=== PATIENT | male | born 1940 | race Caucasian/White ===

== ENCOUNTER → 2016-12-08 | Outpatient (CLI) | payer MEDICARE, OTHER | LOC: LAB 08:27 | DX: Z51.81 Encounter for therapeutic drug level monitoring (principal); Z79.01 Long term (current) use of anticoagulants; Z86.718 Personal history of other venous thrombosis and embolism ==

== ENCOUNTER → 2016-12-23 | Day surgery (SDC) | payer MEDICARE, OTHER | LOC: MSO 07:01 | DX: Z86.010 Personal history of colon polyps (principal); Z12.11 Encounter for screening for malignant neoplasm of colon; K57.30 Diverticulosis of large intestine without perforation or abscess without bleeding; I10 Essential (primary) hypertension; Z87.891 Personal history of nicotine dependence; G47.33 Obstructive sleep apnea (adult) (pediatric); J44.9 Chronic obstructive pulmonary disease, unspecified; J45.909 Unspecified asthma, uncomplicated; K21.9 Gastro-esophageal reflux disease without esophagitis | CPT/HCPCS: 00810; J7120 ==

== ENCOUNTER → 2017-01-06 | Outpatient (CLI) | payer MEDICARE, OTHER | LOC: LAB 13:03 | DX: I26.99 Other pulmonary embolism without acute cor pulmonale (principal); Z86.718 Personal history of other venous thrombosis and embolism ==

== ENCOUNTER → 2017-02-03 | Outpatient (CLI) | payer MEDICARE, OTHER | LOC: LAB 07:26 | DX: Z51.81 Encounter for therapeutic drug level monitoring (principal); Z79.01 Long term (current) use of anticoagulants; I26.99 Other pulmonary embolism without acute cor pulmonale ==

== ENCOUNTER → 2017-02-17 | Outpatient (CLI) | payer MEDICARE, OTHER | LOC: LAB 07:20 | DX: Z51.81 Encounter for therapeutic drug level monitoring (principal); Z79.01 Long term (current) use of anticoagulants; I26.99 Other pulmonary embolism without acute cor pulmonale; Z86.718 Personal history of other venous thrombosis and embolism ==

== ENCOUNTER → 2017-02-27 | Outpatient (CLI) | payer MEDICARE, OTHER | LOC: LAB 08:15 | DX: I26.99 Other pulmonary embolism without acute cor pulmonale (principal); Z86.718 Personal history of other venous thrombosis and embolism ==

== ENCOUNTER → 2017-03-04 | Outpatient (CLI) | payer MEDICARE, OTHER | LOC: LAB 12:41 | DX: Z51.81 Encounter for therapeutic drug level monitoring (principal); Z79.01 Long term (current) use of anticoagulants; I26.99 Other pulmonary embolism without acute cor pulmonale; Z86.718 Personal history of other venous thrombosis and embolism ==

== ENCOUNTER → 2017-03-12 | Outpatient (CLI) | payer MEDICARE, OTHER | LOC: LAB 12:54 | DX: Z51.81 Encounter for therapeutic drug level monitoring (principal); Z79.01 Long term (current) use of anticoagulants; I26.99 Other pulmonary embolism without acute cor pulmonale ==

== ENCOUNTER → 2017-03-26 | Outpatient (CLI) | payer MEDICARE, OTHER | LOC: LAB 11:16 | DX: I26.99 Other pulmonary embolism without acute cor pulmonale (principal); R97.20 Elevated prostate specific antigen [PSA]; Z86.718 Personal history of other venous thrombosis and embolism; Z51.81 Encounter for therapeutic drug level monitoring; Z79.01 Long term (current) use of anticoagulants ==

== ENCOUNTER → 2017-04-24 | Outpatient (CLI) | payer MEDICARE, OTHER | LOC: LAB 10:38 | DX: Z51.81 Encounter for therapeutic drug level monitoring (principal); Z79.01 Long term (current) use of anticoagulants; I26.99 Other pulmonary embolism without acute cor pulmonale; Z86.718 Personal history of other venous thrombosis and embolism ==

== ENCOUNTER → 2017-05-25 | Outpatient (CLI) | payer MEDICARE, OTHER | LOC: LAB 08:16 | DX: Z51.81 Encounter for therapeutic drug level monitoring (principal); Z79.01 Long term (current) use of anticoagulants; I26.99 Other pulmonary embolism without acute cor pulmonale; Z86.718 Personal history of other venous thrombosis and embolism ==

== ENCOUNTER → 2017-06-09 | Outpatient (CLI) | payer MEDICARE, OTHER | LOC: LAB 07:23 | DX: I26.99 Other pulmonary embolism without acute cor pulmonale (principal); Z86.718 Personal history of other venous thrombosis and embolism ==

== ENCOUNTER → 2017-07-09 | Outpatient (CLI) | payer MEDICARE, OTHER | LOC: LAB 13:35 | DX: I26.99 Other pulmonary embolism without acute cor pulmonale (principal); Z86.718 Personal history of other venous thrombosis and embolism ==

== ENCOUNTER → 2017-08-07 | Outpatient (CLI) | payer MEDICARE, OTHER | LOC: LAB 10:34 | DX: I26.99 Other pulmonary embolism without acute cor pulmonale (principal); Z86.718 Personal history of other venous thrombosis and embolism ==

== ENCOUNTER → 2017-09-02 | Outpatient (CLI) | payer MEDICARE, OTHER ==
[2017-09-02 13:05] LABS: PROTHROMBIN TIME 23.8 SECONDS (9.0-12.0)
== END ==
LOC: LAB 12:37
PROVIDERS: Nurse Practitioner Family
DX: I26.99 Other pulmonary embolism without acute cor pulmonale (principal); Z86.718 Personal history of other venous thrombosis and embolism

== ENCOUNTER → 2017-11-02 | Outpatient (CLI) | payer MEDICARE, OTHER ==
[2017-11-02 08:51] LABS: PROTHROMBIN TIME 29.5 SECONDS (9.0-12.0)
== END ==
LOC: LAB 08:23
PROVIDERS: Nurse Practitioner Family
DX: I26.99 Other pulmonary embolism without acute cor pulmonale (principal); Z86.718 Personal history of other venous thrombosis and embolism

== ENCOUNTER → 2017-12-02 | Outpatient (CLI) | payer MEDICARE, OTHER ==
[2017-12-02 13:43] LABS: PROTHROMBIN TIME 35.4 SECONDS (9.0-12.0)
== END ==
LOC: LAB 13:23
PROVIDERS: Nurse Practitioner Family
DX: I26.99 Other pulmonary embolism without acute cor pulmonale (principal); Z86.718 Personal history of other venous thrombosis and embolism; Z88.1 Allergy status to other antibiotic agents

== ENCOUNTER → 2017-12-09 | Outpatient (CLI) | payer MEDICARE, OTHER ==
[2017-12-09 15:26] LABS: CALCIUM 8.3 mg/dL (8.4-10.2); POTASSIUM 4.1 mmol/L (3.6-5.0)
== END ==
LOC: LAB 14:49
PROVIDERS: Nurse Practitioner Family
DX: E87.1 Hypo-osmolality and hyponatremia (principal); I10 Essential (primary) hypertension; Z88.1 Allergy status to other antibiotic agents

== ENCOUNTER → 2017-12-16 | Outpatient (CLI) | payer MEDICARE, OTHER ==
[2017-12-16 10:21] LABS: CALCIUM 8.4 mg/dL (8.4-10.2); POTASSIUM 4.3 mmol/L (3.6-5.0)
[2017-12-16 10:23] LABS: PROTHROMBIN TIME 37.6 SECONDS (9.0-12.0)
== END ==
LOC: LAB 09:45
PROVIDERS: Nurse Practitioner Family
DX: I26.99 Other pulmonary embolism without acute cor pulmonale (principal); E87.1 Hypo-osmolality and hyponatremia; Z86.718 Personal history of other venous thrombosis and embolism

== ENCOUNTER → 2018-01-06 | Outpatient (CLI) | payer MEDICARE, OTHER ==
[2018-01-06 13:11] LABS: PROTHROMBIN TIME 27.7 SECONDS (9.0-12.0)
== END ==
LOC: LAB 12:44
PROVIDERS: Nurse Practitioner Family
DX: I26.99 Other pulmonary embolism without acute cor pulmonale (principal); Z86.718 Personal history of other venous thrombosis and embolism

== ENCOUNTER → 2018-02-02 | Outpatient (CLI) | payer MEDICARE, OTHER ==
[2018-02-02 07:50] LABS: PROTHROMBIN TIME 23.4 SECONDS (9.0-12.0)
== END ==
LOC: LAB 07:27
PROVIDERS: Nurse Practitioner Family
DX: I26.99 Other pulmonary embolism without acute cor pulmonale (principal); Z86.718 Personal history of other venous thrombosis and embolism

== ENCOUNTER → 2018-03-04 | Outpatient (CLI) | payer MEDICARE, OTHER ==
[2018-03-04 13:11] LABS: PROTHROMBIN TIME 24.4 SECONDS (9.0-12.0)
== END ==
LOC: LAB 12:22
PROVIDERS: Nurse Practitioner Family
DX: I26.99 Other pulmonary embolism without acute cor pulmonale (principal); Z86.718 Personal history of other venous thrombosis and embolism; Z88.1 Allergy status to other antibiotic agents

== ENCOUNTER → 2018-04-05 | Outpatient (CLI) | payer MEDICARE, OTHER ==
[2018-04-05 10:19] LABS: PROTHROMBIN TIME 24.3 SECONDS (9.0-12.0)
== END ==
LOC: LAB 09:55
PROVIDERS: Nurse Practitioner Family
DX: I26.99 Other pulmonary embolism without acute cor pulmonale (principal); Z86.718 Personal history of other venous thrombosis and embolism

== ENCOUNTER → 2018-05-03 | Outpatient (CLI) | payer MEDICARE, OTHER ==
[2018-05-03 12:55] LABS: PROTHROMBIN TIME 27.4 SECONDS (9.0-12.0)
== END ==
LOC: LAB 12:24
PROVIDERS: Nurse Practitioner Family
DX: I26.99 Other pulmonary embolism without acute cor pulmonale (principal); Z86.718 Personal history of other venous thrombosis and embolism

== ENCOUNTER → 2018-05-26 | Outpatient (CLI) | payer MEDICARE, OTHER ==
[2018-05-26 07:59] LABS: PROTHROMBIN TIME 22.1 SECONDS (9.0-12.0)
== END ==
LOC: LAB 06:56
PROVIDERS: Nurse Practitioner Family
DX: I26.99 Other pulmonary embolism without acute cor pulmonale (principal); Z86.718 Personal history of other venous thrombosis and embolism

== ENCOUNTER → 2018-06-23 | Outpatient (CLI) | payer MEDICARE, OTHER ==
[2018-06-23 13:17] LABS: PROTHROMBIN TIME 26.4 SECONDS (9.0-12.0)
== END ==
LOC: LAB 12:31
PROVIDERS: Nurse Practitioner Family
DX: I26.99 Other pulmonary embolism without acute cor pulmonale (principal); Z86.718 Personal history of other venous thrombosis and embolism

== ENCOUNTER → 2018-07-22 | Outpatient (CLI) | payer MEDICARE, OTHER | LOC: LAB 09:44 | PROVIDERS: Physician Assistant | DX: I26.99 Other pulmonary embolism without acute cor pulmonale (principal); Z86.718 Personal history of other venous thrombosis and embolism ==

== ENCOUNTER → 2018-08-24 | Outpatient (CLI) | payer MEDICARE, OTHER ==
[2018-08-24 10:05] LABS: PROTHROMBIN TIME 21.3 SECONDS (9.0-12.0)
== END ==
LOC: LAB 08:55
PROVIDERS: Physician Assistant
DX: I26.99 Other pulmonary embolism without acute cor pulmonale (principal); Z86.718 Personal history of other venous thrombosis and embolism

== ENCOUNTER → 2018-09-20 | Outpatient (CLI) | payer MEDICARE, OTHER ==
[2018-09-20 11:01] LABS: PROTHROMBIN TIME 25.9 SECONDS (9.0-12.0)
== END ==
LOC: LAB 10:11
PROVIDERS: Physician Assistant
DX: Z86.718 Personal history of other venous thrombosis and embolism (principal)

== ENCOUNTER → 2018-10-19 | Outpatient (CLI) | payer MEDICARE, OTHER ==
[2018-10-19 10:45] LABS: PROTHROMBIN TIME 28.9 SECONDS (9.0-12.0)
== END ==
LOC: LAB 10:01
PROVIDERS: Physician Assistant
DX: Z86.718 Personal history of other venous thrombosis and embolism (principal)

== ENCOUNTER → 2018-12-21 | Outpatient (CLI) | payer MEDICARE, OTHER | LOC: LAB 09:20 | PROVIDERS: Physician Assistant | DX: Z86.718 Personal history of other venous thrombosis and embolism (principal) ==

== ENCOUNTER → 2019-01-03 | Outpatient (CLI) | payer MEDICARE, OTHER ==
[2019-01-03 08:08] LABS: PROTHROMBIN TIME 30.7 SECONDS (9.0-12.0)
== END ==
LOC: LAB 07:24
PROVIDERS: Physician Assistant
DX: Z86.718 Personal history of other venous thrombosis and embolism (principal)

== ENCOUNTER → 2019-01-28 | Outpatient (CLI) | payer MEDICARE, OTHER ==
[2019-01-28 10:21] LABS: PROTHROMBIN TIME 22.1 SECONDS (9.0-12.0)
== END ==
LOC: LAB 09:46
PROVIDERS: Physician Assistant
DX: Z86.718 Personal history of other venous thrombosis and embolism (principal)

== ENCOUNTER → 2019-02-08 | Outpatient (CLI) | payer MEDICARE, OTHER ==
[2019-02-08 11:08] LABS: PROTHROMBIN TIME 22.4 SECONDS (9.0-12.0)
== END ==
LOC: LAB 10:33
PROVIDERS: Physician Assistant
DX: Z86.718 Personal history of other venous thrombosis and embolism (principal)

== ENCOUNTER → 2019-03-11 | Outpatient (CLI) | payer MEDICARE, OTHER ==
[2019-03-11 10:08] LABS: PROTHROMBIN TIME 18.6 SECONDS (9.0-12.0)
== END ==
LOC: LAB 09:08
PROVIDERS: Physician Assistant
DX: Z86.718 Personal history of other venous thrombosis and embolism (principal)

== ENCOUNTER → 2019-03-24 | Outpatient (CLI) | payer MEDICARE, OTHER ==
[2019-03-24 09:02] LABS: PROTHROMBIN TIME 20.2 SECONDS (9.0-12.0)
== END ==
LOC: LAB 08:29
PROVIDERS: Physician Assistant
DX: Z86.718 Personal history of other venous thrombosis and embolism (principal)

== ENCOUNTER → 2019-04-22 | Outpatient (CLI) | payer MEDICARE, OTHER ==
[2019-04-22 09:25] LABS: PROTHROMBIN TIME 26.1 SECONDS (9.0-12.0)
== END ==
LOC: LAB 08:37
PROVIDERS: Physician Assistant
DX: Z86.718 Personal history of other venous thrombosis and embolism (principal)

== ENCOUNTER → 2019-05-16 | Outpatient (CLI) | payer MEDICARE, OTHER ==
[2019-05-16 10:32] LABS: PROTHROMBIN TIME 25.8 SECONDS (9.0-12.0)
== END ==
LOC: LAB 10:10
PROVIDERS: Physician Assistant
DX: Z86.718 Personal history of other venous thrombosis and embolism (principal)

== ENCOUNTER → 2019-06-21 | Outpatient (CLI) | payer MEDICARE, OTHER ==
[2019-06-21 09:05] LABS: PROTHROMBIN TIME 27.7 SECONDS (9.0-12.0)
== END ==
LOC: LAB 08:43
PROVIDERS: Physician Assistant
DX: Z86.718 Personal history of other venous thrombosis and embolism (principal)

== ENCOUNTER → 2019-07-19 | Outpatient (CLI) | payer MEDICARE, OTHER ==
[2019-07-19 10:28] LABS: PROTHROMBIN TIME 23.9 SECONDS (9.0-12.0)
== END ==
LOC: LAB 09:20
PROVIDERS: Physician Assistant
DX: I26.99 Other pulmonary embolism without acute cor pulmonale (principal); Z86.718 Personal history of other venous thrombosis and embolism

== ENCOUNTER → 2019-08-17 | Outpatient (CLI) | payer MEDICARE, OTHER ==
[2019-08-17 13:07] LABS: PROTHROMBIN TIME 21.9 SECONDS (9.0-12.0)
[2019-08-17 14:01] LABS: EOS # 0.2 (0.04-0.40); EOS % 1.5 % (0.0-4.0); HEMATOCRIT 45.1 % (42.0-52.0); HEMOGLOBIN 14.9 g/dL (13.5-18.0); LYMPH# 2.3 (1.50-4.00); MEAN CELL VOLUME 85 fl (78-100); MEAN CORPUSCULAR HEMOGLOBIN 28 pg (27-31); MEAN CORPUSCULAR HGB CONC 33 g/dL (33-37); MEAN PLATELET VOLUME 9.6 fl (7.4-10.4); NEU # 6.7 (1.40-6.50); PLATELET COUNT 292 K/mm3 (130-400); RED BLOOD COUNT 5.32 M/mm3 (4.20-5.60); RED CELL DISTRIBUTION WIDTH 14.9 % (11.5-14.5); WHITE BLOOD COUNT 10.2 K/mm3 (4.8-10.8)
[2019-08-17 14:04] LABS: ALBUMIN 3.7 g/dL (3.4-4.8)
[2019-08-17 14:05] LABS: POTASSIUM 4.3 mmol/L (3.5-5.1)
[2019-08-17 14:06] LABS: CALCIUM 8.8 mg/dL (8.3-10.5)
[2019-08-17 14:07] LABS: TOTAL PROTEIN 6.8 g/dL (6.2-8.1)
[2019-08-17 14:09] LABS: TOTAL BILIRUBIN 1.1 mg/dL (0.2-1.2)
== END ==
LOC: LAB 12:46
PROVIDERS: Physician Assistant
DX: I26.99 Other pulmonary embolism without acute cor pulmonale (principal); Z86.718 Personal history of other venous thrombosis and embolism

== ENCOUNTER → 2019-09-15 | Outpatient (CLI) | payer MEDICARE, OTHER ==
[2019-09-15 09:49] LABS: PROTHROMBIN TIME 23.1 SECONDS (9.0-12.0)
== END ==
LOC: LAB 09:11
PROVIDERS: Physician Assistant
DX: I26.99 Other pulmonary embolism without acute cor pulmonale (principal); Z86.718 Personal history of other venous thrombosis and embolism

== ENCOUNTER → 2019-10-19 | Outpatient (CLI) | payer MEDICARE, OTHER ==
[2019-10-19 09:09] LABS: PROTHROMBIN TIME 25.8 SECONDS (9.0-12.0)
== END ==
LOC: LAB 08:28
PROVIDERS: Physician Assistant
DX: I26.99 Other pulmonary embolism without acute cor pulmonale (principal); Z86.718 Personal history of other venous thrombosis and embolism

== ENCOUNTER → 2019-11-22 | Outpatient (CLI) | payer MEDICARE, OTHER ==
[2019-11-22 08:23] LABS: PROTHROMBIN TIME 30.1 SECONDS (9.0-12.0)
== END ==
LOC: LAB 07:55
PROVIDERS: Physician Assistant
DX: I26.99 Other pulmonary embolism without acute cor pulmonale (principal); Z86.718 Personal history of other venous thrombosis and embolism

== ENCOUNTER → 2019-12-27 | Outpatient (CLI) | payer MEDICARE, OTHER ==
[2019-12-27 09:29] LABS: PROTHROMBIN TIME 31.5 SECONDS (9.0-12.0)
== END ==
LOC: LAB 09:02
PROVIDERS: Physician Assistant
DX: I26.99 Other pulmonary embolism without acute cor pulmonale (principal); Z86.718 Personal history of other venous thrombosis and embolism

== ENCOUNTER → 2020-01-30 | Outpatient (CLI) | payer MEDICARE, OTHER ==
[2020-01-30 11:31] LABS: PROTHROMBIN TIME 28.3 SECONDS (9.0-12.0)
== END ==
LOC: LAB 11:03
PROVIDERS: Physician Assistant
DX: I26.99 Other pulmonary embolism without acute cor pulmonale (principal); Z86.718 Personal history of other venous thrombosis and embolism

== ENCOUNTER → 2020-03-08 | Outpatient (CLI) | payer MEDICARE, OTHER ==
[2020-03-08 08:23] LABS: PROTHROMBIN TIME 27.2 SECONDS (9.0-12.0)
== END ==
LOC: LAB 07:40
PROVIDERS: Physician Assistant
DX: I26.99 Other pulmonary embolism without acute cor pulmonale (principal); Z86.718 Personal history of other venous thrombosis and embolism

== ENCOUNTER → 2020-04-10 | Outpatient (CLI) | payer MEDICARE, OTHER ==
[2020-04-10 09:15] LABS: PROTHROMBIN TIME 19.7 SECONDS (9.0-12.0)
== END ==
LOC: LAB 08:33
PROVIDERS: Physician Assistant
DX: I26.99 Other pulmonary embolism without acute cor pulmonale (principal); Z86.718 Personal history of other venous thrombosis and embolism

== ENCOUNTER 2021-05-29 04:32 | Observation (INO) | payer MEDICARE, OTHER ==
[2021-05-29 04:16] VITALS: BP 158/71
[2021-05-29] MEDS ORDERED: DICLOFENAC SOD100 GM TP (04:45)
[2021-05-29] MEDS ORDERED: ELIQUIS5 MG PO (04:46)
[2021-05-29] MEDS ORDERED: REFRESH PLUS 00.4 M1 OP (04:46)
[2021-05-29] MEDS ORDERED: SYSTANE NIGHTT3.5 GM OP (04:46)
[2021-05-29] MEDS ORDERED: PEG335017 GM/Dose PO (04:46)
[2021-05-29] MEDS ORDERED: VITAMIN C500 MG (04:47)
[2021-05-29] MEDS ORDERED: LISINOPRIL40 MG PO (04:47)
[2021-05-29] MEDS ORDERED: CETIRIZINE HCL10 MG PO (04:47)
[2021-05-29] MEDS ORDERED: PROAIR HFA0.09 MG/AC IH (04:48)
[2021-05-29] MEDS ORDERED: ATORVASTATIN CA40 MG PO (04:48)
[2021-05-29] MEDS ORDERED: FLUTICASON0.05 MG/AC NS (04:48)
[2021-05-29] MEDS ORDERED: FINASTERIDE5 M1 PO (04:49)
[2021-05-29] MEDS ORDERED: PANTOPRAZOLE SO20 M1 PO (04:49)
[2021-05-29] MEDS ORDERED: KLONOPIN 0.5MG0.5 MG PO (04:50)
[2021-05-29] MEDS ORDERED: CELEXA 20MG20 MG/TA1 PO (04:50)
[2021-05-29] MEDS ORDERED: SENEXON-S 50-81 EACH PO (04:57)
[2021-05-29] MEDS ORDERED: STRIVERDI2.5 MCG/Ac IH (05:03)
[2021-05-29] MEDS ORDERED: INCRUSE EL62.5 MCG/A IH (05:04)
[2021-05-29 05:29] VITALS: BP 158/71
[2021-05-29 07:37] LABS: BASO # 0.02 (0.02-0.10); HEMATOCRIT 34.4 % (42.0-52.0); HEMOGLOBIN 11.1 g/dL (13.5-18.0); LYMPH# 0.87 (1.50-4.00); MEAN CELL VOLUME 76 fl (78-100); MEAN CORPUSCULAR HEMOGLOBIN 25 pg (27-31); MEAN CORPUSCULAR HGB CONC 32 g/dL (33-37); MEAN PLATELET VOLUME 9.2 fl (7.4-10.4); MONO # 1.01 (0.20-0.80); NEU # 7.52 (1.40-6.50); PLATELET COUNT 195 K/mm3 (130-400); RED BLOOD COUNT 4.53 M/mm3 (4.20-5.60); RED CELL DISTRIBUTION WIDTH 15.6 % (11.5-14.5); WHITE BLOOD COUNT 9.5 K/mm3 (4.8-10.8)
[2021-05-29 07:46] LABS: POTASSIUM 3.6 mmol/L (3.5-5.1)
[2021-05-29 07:47] LABS: CALCIUM 7.6 mg/dL (8.3-10.5)
[2021-05-29 07:48] LABS: TOTAL PROTEIN 5.9 g/dL (6.2-8.1)
[2021-05-29 07:50] LABS: TOTAL BILIRUBIN 0.5 mg/dL (0.2-1.2)
[2021-05-29 09:59] VITALS: BP 146/80
[2021-05-29 14:32] VITALS: BP 135/83
== END 2021-05-29 15:47 | disposition home or self-care (01) ==
LOC: MED/SURG 04:32
PROVIDERS: ADMIT Nurse Practitioner
DX: R50.9 Fever, unspecified (principal); R53.1 Weakness; E87.1 Hypo-osmolality and hyponatremia; Z86.16 Personal history of COVID-19; E78.5 Hyperlipidemia, unspecified; I48.91 Unspecified atrial fibrillation; Z20.822 Contact with and (suspected) exposure to COVID-19; Z79.01 Long term (current) use of anticoagulants; Z86.718 Personal history of other venous thrombosis and embolism; Z86.711 Personal history of pulmonary embolism; Z79.899 Other long term (current) drug therapy; F41.9 Anxiety disorder, unspecified
CPT/HCPCS: J7030

== ENCOUNTER 2021-06-01 15:28 | Emergency (ER) | payer MEDICARE, OTHER ==
[~2021-06-01 15:28] MED LIST: ATORVASTATIN CA40 MG PO; CELEXA 20MG20 MG/TA1 PO; CETIRIZINE HCL10 MG PO; DICLOFENAC SOD100 GM TP; ELIQUIS5 MG PO; FINASTERIDE5 M1 PO; FLUTICASON0.05 MG/AC NS; INCRUSE EL62.5 MCG/A IH; KLONOPIN 0.5MG0.5 MG PO; LISINOPRIL40 MG PO; PANTOPRAZOLE SO20 M1 PO; PEG335017 GM/Dose PO; PROAIR HFA0.09 MG/AC IH; REFRESH PLUS 00.4 M1 OP; SENEXON-S 50-81 EACH PO; STRIVERDI2.5 MCG/Ac IH; SYSTANE NIGHTT3.5 GM OP; VITAMIN C500 MG
[2021-06-01 15:58] VITALS: BP 169/97
[2021-06-01 16:43] LABS: HEMATOCRIT 33.9 % (42.0-52.0); HEMOGLOBIN 11.2 g/dL (13.5-18.0); MEAN CELL VOLUME 74 fl (78-100); MEAN CORPUSCULAR HEMOGLOBIN 24 pg (27-31); MEAN CORPUSCULAR HGB CONC 33 g/dL (33-37); MEAN PLATELET VOLUME 9.5 fl (7.4-10.4); PLATELET COUNT 176 K/mm3 (130-400); RED BLOOD COUNT 4.59 M/mm3 (4.20-5.60); RED CELL DISTRIBUTION WIDTH 15.7 % (11.5-14.5); WHITE BLOOD COUNT 13.4 K/mm3 (4.8-10.8)
[2021-06-01 16:58] LABS: ALBUMIN 2.9 g/dL (3.4-4.8); POTASSIUM 4.4 mmol/L (3.5-5.1); SODIUM 123 mmol/L (136-145)
[2021-06-01 16:59] LABS: CALCIUM 8.3 mg/dL (8.3-10.5)
[2021-06-01 17:00] LABS: GLUCOSE 126 mg/dL (75-110)
[2021-06-01 17:01] LABS: TOTAL PROTEIN 6.1 g/dL (6.2-8.1)
[2021-06-01 17:02] LABS: CARBON DIOXIDE 19 mmol/L (23-31); TOTAL BILIRUBIN 0.9 mg/dL (0.2-1.2)
[2021-06-01 17:06] LABS: AST-SGOT 59 U/L (5-34)
[2021-06-01 17:07] LABS: ALT/SGPT 34 U/L (0-55)
[2021-06-01 17:12] LABS: BAND 15 % (0-10); HYPOCHROMIA 1+; LYMPHOCYTE 3 % (20-51); MICROCYTOSIS 2+; MONOCYTE 3 % (3-10); NEUTROPHILS 79 % (42-75)
[2021-06-01 17:13] LABS: OVALOCYTES 1+
[2021-06-01 17:14] LABS: TROPONIN-I < 0.03 ng/mL (<0.030)
[2021-06-01 17:42] LABS: URINE APPEARANCE CLOUDY; URINE BILIRUBIN NEGATIVE (NEGATIVE); URINE BLOOD 250 ery/uL (NEGATIVE); URINE COLOR YELLOW; URINE GLUCOSE NEGATIVE (NEGATIVE); URINE KETONE NEGATIVE (NEGATIVE); URINE LEUKOCYTE ESTERASE NEGATIVE (NEGATIVE); URINE NITRATE NEGATIVE (NEGATIVE); URINE PROTEIN(semi-quant) 2+ mg/dL (NEGATIVE); URINE UROBILINOGEN NORMAL (NORMAL)
== END 2021-06-01 19:00 | disposition other institution (70) ==
LOC: ED 15:28
PROVIDERS: Family Medicine
DX: J18.9 Pneumonia, unspecified organism (principal); E87.1 Hypo-osmolality and hyponatremia; I48.91 Unspecified atrial fibrillation; F41.9 Anxiety disorder, unspecified; E78.5 Hyperlipidemia, unspecified; Z86.711 Personal history of pulmonary embolism; Z86.718 Personal history of other venous thrombosis and embolism; Z20.822 Contact with and (suspected) exposure to COVID-19

== ENCOUNTER 2021-06-01 18:08 | Inpatient (IN) | payer MEDICARE, OTHER ==
[2021-06-01 19:15] VITALS: BP 142/78
[2021-06-01 21:57] VITALS: BP 114/65
[2021-06-02 00:38] VITALS: BP 155/77
[2021-06-02 05:54] VITALS: BP 129/74
[2021-06-02 10:46] VITALS: BP 116/69
[2021-06-02 14:30] VITALS: BP 109/65
[2021-06-02 18:00] VITALS: BP 134/84
[2021-06-02 21:23] VITALS: BP 115/66
[2021-06-03 02:00] VITALS: BP 115/70
[2021-06-03 06:17] VITALS: BP 111/60
[2021-06-03 06:55] LABS: HEMATOCRIT 32.6 % (42.0-52.0); HEMOGLOBIN 10.6 g/dL (13.5-18.0); MEAN CELL VOLUME 76 fl (78-100); MEAN CORPUSCULAR HEMOGLOBIN 25 pg (27-31); MEAN CORPUSCULAR HGB CONC 33 g/dL (33-37); MEAN PLATELET VOLUME 9.8 fl (7.4-10.4); PLATELET COUNT 176 K/mm3 (130-400); RED CELL DISTRIBUTION WIDTH 16.1 % (11.5-14.5)
[2021-06-03 07:07] LABS: POTASSIUM 4.4 mmol/L (3.5-5.1)
[2021-06-03 07:08] LABS: CALCIUM 8.3 mg/dL (8.3-10.5)
[2021-06-03 07:39] LABS: BAND 11 % (0-10); LYMPHOCYTE 5 % (20-51); MICROCYTOSIS 2+; MONOCYTE 3 % (3-10); NEUTROPHILS 81 % (42-75); POLYCHROMASIA 1+
[2021-06-03 07:40] LABS: OVALOCYTES 1+
[2021-06-03 09:45] VITALS: BP 119/72
[2021-06-03 13:23] VITALS: BP 117/89
== END 2021-06-03 13:49 | disposition short-term general hospital (02) | DRG 194 ==
LOC: MED/SURG 18:08
PROVIDERS: ADMIT Family Medicine
DX: J18.9 Pneumonia, unspecified organism (principal); E87.1 Hypo-osmolality and hyponatremia; J44.0 Chronic obstructive pulmonary disease with (acute) lower respiratory infection; I48.91 Unspecified atrial fibrillation; K21.9 Gastro-esophageal reflux disease without esophagitis; F41.9 Anxiety disorder, unspecified; E78.5 Hyperlipidemia, unspecified; R06.6 Hiccough; R53.1 Weakness; Z20.822 Contact with and (suspected) exposure to COVID-19; Z79.01 Long term (current) use of anticoagulants; Z86.16 Personal history of COVID-19; Z86.711 Personal history of pulmonary embolism; Z86.718 Personal history of other venous thrombosis and embolism; Z88.0 Allergy status to penicillin; Z88.8 Allergy status to other drugs, medicaments and biological substances
CPT/HCPCS: J0696; J2060; J2765; J3490